=== PATIENT | female | born 1975 | race Caucasian/White ===

== ENCOUNTER → 2021-08-28 07:51 | Outpatient (CLI) | payer BC, SELFPAY ==
--- NOTE | ~2021-08-28 | MMUS_ITS ---
EXAMINATION: MM diagnostic les RT w rosa, US breast RT limited HISTORY: Follow-up right breast masses TECHNIQUE: Additional 3-D tomosynthesis images of the right breast were performed and synthetic 2-D i mages were generated. CAD analysis was submitted and interpreted. High resolution Limited right breas t ultrasound was performed. COMPARISON: Comparison to multiple prior studies sequentially, with oldest reviewed study dated 09/2019. BREAST PARENCHYMAL COMPOSITION: Breast composed of scattered areas of fibroglandular density. FINDINGS: MAMMOGRAPHIC FINDINGS: There are no suspicious masses, calcifications or architectural distortion in the right breast to sug gest malignancy. ULTRASOUND: Limited right breast ultrasound: At 3:00, 2 cm from the nipple there is a small cluster of microcysts measuring up to 3 mm. At 5:00, 4 cm from the nipple there is a 4 mm cyst. At 5:00, 5 cm from the nip ple there is an oval hypoechoic mass measuring 4 x 3 x 3 mm without posterior shadowing or internal v ascularity, likely complicated cyst. IMPRESSION: 1. Probable benign right breast masses. 2. Recommend 6 month follow-up diagnostic bilateral mammogram and right breast ultrasound BI-RADS category 3, probably benign findings. Reviewed, dictated and finalized at location A. 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 Probable benign right breast masses. 2. Recommend 6 month follow-up diagnostic bilateral mammogram and right breast ultrasound BI-RADS category 3, probably benign findings.
== END ==
PROVIDERS: PCP Family Medicine; Visit Provider Obstetrics & Gynecology
DX: R92.8 Other abnormal and inconclusive findings on diagnostic imaging of breast (principal)
CPT/HCPCS: 76642; 77061; 77065; G0279